=== PATIENT | male | born 1950 | race Caucasian/White ===

== ENCOUNTER → 2016-10-18 | Outpatient (CLI) | payer OTHER | LOC: BHFA 10:30 | PROVIDERS: ATTEND Internal Medicine Cardiovascular Disease | DX: R55 Syncope and collapse (principal) ==

== ENCOUNTER 2016-11-01 17:46 | Observation (INO) | payer OTHER, MEDICARE ==
--- NOTE | 2016-11-01 18:03 | CPEKG ---
Heart Rate: 73 RR Interval: 822 P-R Interval: 160 QRSD Interval: 96 QT Interval: 396 QTC Interval: 437 P Star: 68 QRS Star: 51 T Wave Star: 53 EKG Severity - OTHERWISE NORMAL ECG - EKG Impression: SINUS ARRHYTHMIA, RATE 67-79 EKG Impression: VENTRICULAR PREMATURE COMPLEX Electronically Signed By: Mag Pulido 01-Nov-2016 22:08:12
[2016-11-01] MEDS ORDERED: NS 500 ML IV ONE (18:13)
--- NOTE | 2016-11-01 18:23 | EDPHY ---
H & P Time Seen by Provider: 11/01/16 17:57 HPI/ROS: HPI Fainting, word-finding difficulty. 66-year-old male by private vehicle with his . Patient was seen at the office of his primary care physician, Dr. Hannon. Patient was sent to the emergency department from there by private vehicle. Patient reports Monday he had an episode of expressive aphasia. He describes this as word-finding difficulty and feeling confused which lasted about 30 minutes and then resolved. He reports that he still feels somewhat fuzzy in his head. He reports on Monday he had a syncopal event. He reports Monday was helping somebody move. He reports that he was sitting for a little while then got up to go turn off water outside for the garden. He reports he was leaning against his house and suddenly blacked out. He reports that he has had 6 or 7 of these episodes over the years. He reports that sometimes they have been associated with physical exercise. He reports that he had a stress test as well as a Holter monitor placed in early October by his twisting frame changer Dr. Sohan Gutierrez. Dr. hill discussed his recent history with Dr. Gutierrez. He was sent here for workup and admission under Dr. Gutierrez request. Other than feeling mildly fuzzy in his head. He denies any other symptoms at this time. ROS: Constitutional: No fever, no chills. As above. Eyes: No discharge. No changes in vision. ENT: No sore throat. No nasal congestion or rhinorrhea. Respiratory: No cough. No shortness of breath. Cardiac: No chest pain, no palpitations. Gastrointestinal: No abdominal pain, no vomiting, no diarrhea. Genitourinary: No hematuria. No dysuria or increased frequency with urination. Musculoskeletal: No back pain. No neck pain. No myalgias or arthralgias. Skin: No rashes. Neurological: No headache. No focal weakness or altered sensation. Past medical history: Hypothyroidism. He takes Synthroid for this. As above. Social history: Nonsmoker[place] He is in the wind visits. He drinks alcohol on a daily basis. Physical Exam: General Appearance: Alert, no distress. This patient is responding to questions appropriately and in full sentences. This patient appears well- hydrated and well-nourished. Eyes: Pupils equal and round at 3-2 mm bilaterally, no pallor or injection. No lid edema, erythema or injection. ENT, Mouth: Mucous membranes are moist. The pharyngeal tissues are unremarkable. No edema or swelling. No asymmetry suggestive of abscess. No erythema or exudates. No tongue lacerations or abrasions. Respiratory: There are no retractions, lungs are clear to auscultation with good air movement bilaterally. Cardiovascular: Regular rate and rhythm. No murmur. Gastrointestinal: Abdomen is soft and nontender, no masses, bowel sounds normal. No focal tenderness at McBurney's point. No Reese sign. Neurological: Motor sensory function is grossly intact. Cranial nerves are normal. Gait is normal. Skin: Warm and dry, no rashes. Musculoskeletal: Neck is supple and nontender. Extremities are symmetrical. All joints range without pain or impingement. Psychiatric: No agitation. No depression. Database: EKG: EKG time is 6:01 p.m.; EKG shows a narrow complex normal sinus arrhythmia with a ventricular rate of 73. The CA, QRS, QT intervals are within normal limits. Tall peaked T-waves in V3 and V4. PVC noted. No evidence of right heart strain. Interpreted by me. Imaging: Chest x-ray PA and lateral; atherosclerotic tortuous aorta. No acute cardiopulmonary disease process noted. Interpreted by me. MRI of brain noncontrast diffusion-weighted; no acute pathology. Generalized atrophy which is mild. Small vessel disease noted. Results were discussed with staff radiologist Dr. Huy Guerrero. Procedures: Emergency department course: IV placed. He was placed on a operator assistant i cementing. EKG performed. He will be started on IV normal saline with 500 cc to be done over the next hour. Noncontrast MRI of his brain will be obtained. 7:30 p.m., patient re-evaluated. Resting comfortably at this time. Results of blood work discussed with him. Plan for admission discussed. He endorses. MRI results pending. 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 7:40 p.m., spoke with on-call hospitalist regarding this patient. Dr. Anisa Anderson accepts the patient for admission to telemetry. Cardiology will be consulted by the hospitalist service. Patient's remaining emergency department course under my care uneventful. Patient was admitted in stable condition to the hospitalist service. Differential Diagnosis: The differential diagnosis on this patient includes but is not limited to TIA, syncope secondary to arrhythmia, vasovagal syncope. This represents a partial list of diagnoses considered. These considerations are based on history, physical exam, past history, reassessment and diagnostic testing. Smoking Status: Current every day smoker Constitutional: Initial Vital Signs Temperature (C) 37.0 C 11/01/16 17:52 Heart Rate 69 11/01/16 17:52 Respiratory Rate 16 11/01/16 17:52 Blood Pressure 136/89 H 11/01/16 17:52 O2 Sat (%) 98 11/01/16 17:52 O2 Delivery Mode Room Air Allergies/Adverse Reactions: penicillin G Allergy (Verified 11/01/16 17:49) Home Medications: Medication Instructions Recorded Levothyroxine [Synthroid 125 mcg 125 mcg PO DAILY06 11/01/16 (*)] Multivitamins [Multivitamin (*)] 1 each PO DAILY 11/01/16 Medical Decision Making - Diagnostics Imaging Results: Imaging Impressions Brain MRI 11/01/16 18:13 Impression: 1. Negative for acute cortical ischemia, specifically, no abnormality is seen in the inferior frontal gyrus to explain expressive aphasia. 2. Mild generalized atrophy with multiple foci of white matter T2 hyperintensity presumably small vessel disease. Results called and discussed with Mag Pulido MD on 11/01/2016 at 20: 21 Chest X-Ray 11/01/16 18:13 Impression: 1. Atherosclerotic tortuous aorta. 2. No acute pulmonary disease. - Data Points Laboratory Results: Laboratory Results 11/01/16 18:10 11/01/16 18:10 11/01/16 11/01/16 11/01/16 18:10 18:10 18:10 WBC 6.21 10^3/uL 10^3/uL (3.80-9.50) RBC 5.43 10^6/uL 10^6/uL (4.40-6.38) Hgb 16.7 g/dL g/dL (13.7-17.5) Hct 48.0 % % (40.0-51.0) MCV 88.4 fL fL (81.5-99.8) MCH 30.8 pg pg (27.9-34.1) MCHC 34.8 g/dL g/dL (32.4-36.7) RDW 13.3 % % (11.5-15.2) Plt Count 220 10^3/uL 10^3/uL (150-400) MPV 9.7 fL fL (8.7-11.7) Neut % (Auto) 54.5 % % (39.3-74.2) Lymph % (Auto) 31.2 % % (15.0-45.0) [place] % (Auto) 9.0 % % (4.5-13.0) Eos % (Auto) 3.7 % % (0.6-7.6) Baso % (Auto) 1.4 % % (0.3-1.7) Nucleat RBC Rel Count 0.0 % % (0.0-0.2) Absolute Neuts (auto) 3.38 10^3/uL 10^3/uL (1.70-6.50) Absolute Lymphs (auto) 1.94 10^3/uL 10^3/uL (1.00-3.00) Absolute Monos (auto) 0.56 10^3/uL 10^3/uL (0.30-0.80) Absolute Eos (auto) 0.23 10^3/uL 10^3/uL (0.03-0.40) Absolute Basos (auto) 0.09 10^3/uL 10^3/uL (0.02-0.10) Absolute Nucleated RBC 0.00 10^3/uL 10^3/uL (0-0.01) Immature Gran % 0.2 % % (0.0-1.1) Immature Gran # 0.01 10^3/uL 10^3/uL (0.00-0.10) PT 12.7 SEC SEC (12.0-15.0) INR 0.96 (0.83-1.16) APTT 27.5 SEC SEC (23.0-38.0) Sodium 140 mEq/L mEq/L (134-144) Potassium 4.1 mEq/L mEq/L (3.5-5.2) Chloride 106 mEq/L mEq/L (97-110) Carbon Dioxide 23 mEq/l mEq/l (22-31) Anion Gap 11 mEq/L mEq/L (8-16) BUN 14 mg/dL mg/dL (7-23) Creatinine 0.8 mg/dL mg/dL (0.7-1.3) Estimated GFR > 60 Glucose 86 mg/dL mg/dL (70-100) Calcium 9.6 mg/dL mg/dL (8.5-10.4) Creatine Kinase 134 IU/L IU/L (0-224) CK-MB (CK-2) Fraction 2.86 ng/mL ng/mL (0.00-3.19) Troponin I < 0.012 ng/mL ng/mL (0.000-0.034) NT-Pro-B Natriuret Pep 56 pg/mL pg/mL (0-125) TSH 0.595 uIU/mL uIU/mL (0.465-4.680) Medications Given: Discontinued Medications Sodium Chloride (Ns) 500 mls @ 1,000 mls/hr IV EDNOW ONE PRN Reason: Protocol Stop: 11/01/16 18:42 Last Admin: 11/01/16 18:19 Dose: 500 mls Departure - Departure Disposition: [facility] Acute Clinical Impression: Transient expressive aphasia, Syncope
[2016-11-01 18:28] LABS: % IMMATURE GRANULYOCYTES 0.2 % (0.0-1.1); ABSOLUTE IMMATURE GRANULOCYTES 0.01 10^3/uL (0.00-0.10); ADD DIFF? NO; ADD MORPH? NO; ADD SCAN? NO; ATYPICAL LYMPHOCYTE FLAG 0 (0-99); FRAGMENT RBC FLAG 0 (0-99); HEMOGLOBIN 16.7 g/dL (13.7-17.5); LEFT SHIFT FLG 0 (0-99); LIPEMIA HEMOLYSIS FLAG 90 (0-99); MEAN CELL HEMOGLOBIN 30.8 pg (27.9-34.1); MEAN CELL HEMOGLOBIN CONCENTR. 34.8 g/dL (32.4-36.7); MEAN CELL VOLUME 88.4 fL (81.5-99.8); MEAN PLATELET VOLUME 9.7 fL (8.7-11.7); PLATELET CLUMPS FLAG 10 (0-99); PLATELET COUNT 220 10^3/uL (150-400); RED BLOOD CELL COUNT 5.43 10^6/uL (4.40-6.38); RED CELL DISTRIBUTION WIDTH 13.3 % (11.5-15.2)
[2016-11-01 18:31] LABS: ANION GAP 11 mEq/L (8-16); CALCIUM 9.6 mg/dL (8.5-10.4); CARBON DIOXIDE 23 mEq/l (22-31); CHLORIDE 106 mEq/L (97-110); CREATININE 0.8 mg/dL (0.7-1.3); GLOMERULAR FILTRATION RATE > 60; GLUCOSE 86 mg/dL (70-100); POTASSIUM 4.1 mEq/L (3.5-5.2); SODIUM 140 mEq/L (134-144)
[2016-11-01 18:37] LABS: APTT 27.5 SEC (23.0-38.0); INR 0.96 (0.83-1.16); PROTIME(PATIENT) 12.7 SEC (12.0-15.0)
[2016-11-01 18:40] LABS: CREATINE KINASE-MB FRACTION 2.86 ng/mL (0.00-3.19)
[2016-11-01 18:53] LABS: TROPONIN I < 0.012 ng/mL (0.000-0.034)
[2016-11-01] MEDS ORDERED: ONDANSETRON DISINTEGRATING 4 MG TAB PO PRN (23:19)
[2016-11-01] MEDS ORDERED: ONDANSETRON 4 MG/2 ML VIAL IVP PRN (23:19)
[2016-11-01] MEDS ORDERED: oxyCODONE IR 5 MG TAB PO PRN (23:19)
[2016-11-01] MEDS ORDERED: TEMAZEPAM 15 MG CAP PO PRN (23:19)
[2016-11-01] MEDS ORDERED: ACETAMINOPHEN 325 MG TAB PO PRN (23:19)
--- NOTE | 2016-11-01 23:55 | GHP ---
[f rep st] HISTORY AND PHYSICAL DATE OF ADMISSION: 11/01/2016 CHIEF COMPLAINT: Syncope. HISTORY OF PRESENT ILLNESS: This is a 66-year-old man who presents with syncope. History predates this last episode, however. Over the last 6 years, he has had multiple episodes of lightheadedness with about one episode of syncope a year. He has also had episodes of aphasia about 3-4 per year, w hich lasts about 15-30 minutes. Syncope is described as having a slight prodrome where he gets ligh theaded and then passes out. He has no palpitations or chest pain prior to this. It does not seem as though this is exertional either. Aphasia described as episodes 15-30 minutes of word-finding di fficulties. Not associated with any focal weakness or numbness though he does feel confused. As ab ove, he has had multiple a few of these a year for the past 6 years. He was recently sent to see Dr. Gutierrez for a cardiac workup. He had a Holter monitor, which showed 10 episodes of SVT, as well as PVCs. He had a treadmill EKG, which was nondiagnostic due to EKG derek ngdavid. Outpatient nuclear stress test has been ordered. He saw Dr. Hannon today who has been coor dinating all this. Because of the syncope that occurred last Monday, Dr. Hannon sent him to the E [facility]. PAST MEDICAL/SURGICAL HISTORY: 1. Hypothyroid. 2. Appendectomy. MEDICATIONS: Please see medication reconciliation. ALLERGIES: Penicillin G. SOCIAL HISTORY: He drinks daily. 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 He does not smoke or use any ot her drugs. FAMILY HISTORY: His father had an ND. REVIEW OF SYSTEMS: A 10-point review of systems is conducted and is negative except per HPI. PHYSICAL EXAM: VITAL SIGNS: Blood pressure 146/88, heart rate 54, respiration rate 20, saturating 94% on room air, temperature is 36.6. GENERAL: The patient is a pleasant man who appears comfortab le in no acute distress. HEENT: Shows him to be normocephalic atraumatic. CARDIOVASCULAR: Regula r rate and rhythm. No murmurs, rubs, or gallops. PULMONARY: Lungs clear to auscultation bilateral ly. ABDOMEN: Soft, nontender, nondistended. SKIN: No rash. : No Saul. NEUROLOGIC: Shows h im to be alert and oriented x3. He is moving all extremities. PSYCHIATRIC: Shows normal mood and affect. LABORATORY DATA: CBC is normal. INR is normal. Basic metabolic panel, troponin, TSH are all cory l. DATA: 1. Discussed this with Dr. Anderson. Will admit to PCU. 2. Chest x-ray, which I personally viewed and interpreted, shows nothing acute. 3. Brain MRI shows no CVA, but it does show mild general atrophy. 4. ECG, which I personally viewed and interpreted, shows 1 PVC, nothing acute. IMPRESSION AND PLAN: 1. Syncope: He does have runs of supraventricular tachycardia, which correlate with his lightheade dness on recent Holter. He had a non-diagnostic EKG treadmill. Will order a treadmill with nuclear imaging. I will ask my covering colleague to consult Cardiology tomorrow for additional recommenda tions. 2. Episodes of aphasia: No cerebrovascular accident on his MRI. He tells me he has had a negative duplex ultrasound of his carotids recently. We will get an echo as above. I will go ahead and ord er a CT angiogram of his head and neck. Will order lipids. Will start an aspirin. Will screen him for diabetes. Will consult Neurology. 3. Supraventricular tachycardia: Cardiology has been consulted as above. Reasonable to consider a beta-nelson. 4. Hypothyroid: Will continue his levothyroxine. /[id number]/MODL
[2016-11-02] MEDS ORDERED: LEVOTHYROXINE 125 MCG TAB PO SCH (06:00)
[2016-11-02 06:02] LABS: CHOLESTEROL 146 mg/dL (140-220); CHOLESTEROL/HDL RATIO 4.87 RATIO (1.00-4.97); HIGH DENSITY LIPOPROTEIN 30 mg/dL (40-65); LDL/HDL RATIO 2.87 RATIO (1.00-3.64); LOW DENSITY LIPOPROTEIN 86 mg/dL (80-100); NON-HIGH DENSITY LIPOPROTEIN 116 mg/dL (90-129); TRIGLYCERIDE 151 mg/dL (40-150); VERY LOW DENSITY LIPOPROTEINS 30 mg/dL (8-25)
[2016-11-02 06:13] LABS: TROPONIN I < 0.012 ng/mL (0.000-0.034)
[2016-11-02] MEDS ORDERED: ASPIRIN 81 MG CHEWABLE TAB PO SCH (09:00)
[2016-11-02] MEDS ORDERED: MULTIVITAMINS 1 EACH TAB PO SCH (09:00)
[2016-11-02 09:42] LABS: HEMOGLOBIN A1C 5.3 % (4.0-6.0)
[2016-11-02] MEDS ORDERED: IOPAMIDOL (ISOVUE 370) 100 ML BTL IV ONE (11:36)
--- NOTE | 2016-11-02 12:32 | CPR ---
[f rep st] NONINVASIVE CARDIAC PROCEDURE REPORT INDICATION FOR PROCEDURE: Recent syncopal event, known history of abnormal exercise treadmill testi mary October 18. PRE: After obtaining informed consent, patient was placed on electrocardiogram. Initial EKG shows sinus rhythm, normal axis, no significant ST or T-wave abnormalities suggesting of ischemia. The osmin mcduffie's initial blood pressure 134/90, denying of any chest pain, shortness of breath, or symptoms s uggesting of ischemia. Initial saturation 94%. STRESS: Patient was placed on exercise treadmill, following standard Jian protocol with the follow ing findings. 1. Patient was able to exercise for 8 minutes. 2. 9.3 METS. 3. Obtaining a heart rate of 147 beats per minute, which 94% of MPHR. 4. Patient had [address] depression in inferolateral leads. 5. Patient had no chest pain or symptoms suggesting of ischemia. 6. Patient was noted to have rare premature ventricular contractions. 7. BP variations: Rest 134/90, peak 170/80. 8. SpO2 remained greater than 90% throughout testing. 9. Testing was stopped due to maximum effort. 10. The patient has a Torrez treadmill score of 3, placing him at intermediate risk. RECOVERY: Patient recovered for 5 minutes. Vital signs remained stable. EKG returned to baseline. No significant arrhythmias noted. Patient remained asymptomatic. Patient's vital signs stable wh en taken down to Nuclear Medicine for post-stress imaging. IMPRESSION: Patient, 66-year-old male, undergoing exercise MPI study with previous history of recen t abnormal exercise treadmill testing and syncopal events. Test is equivocal for cardiac ischemia. MPI study imaging is pending. Patient with no symptoms of chest pain or angina. Further evaluation post MPI study. /[id number]/MODL
--- NOTE | 2016-11-02 12:50 | PDCONSULT ---
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 Syncope is currently being worked up by cardiology and [facility] internal medicine. He had also mentioned to the ED provided that he has been having episodes of expressive aphasia over the years. This prompted neurology consultation. Patient reports maybe 6-7 stereotyped episodes of aphasia over the last several years. He will abruptly feel like he can think of what he wants to say, but can 't get the words out. He will produce broken up speech for about 15-30 mins. He can't think of any provoking factor. He will sometimes get a headache with these events, but not always. He's never had any focal weakness, sensory loss, visual disturbance, gait trouble, dizziness with these episodes. He has no known conventional vascular risk factors, but he is taking aspirin 162mg daily. ROS: As per the HPI, otherwise a complete 12 point ROS was performed and is negative ALLERGIES AND MEDS: As recorded in the EMR - reviewed and reconciled PFSH: As per the intake H&P by Dr. Peterson from yesterday EXAM: VS reviewed in EMR GEN: WDWN laying in NAD HEENT: NCAT, sclera anicteric, conjunctiva not injected, MMM, oropharynx clear, no scalp tenderness NECK: supple, nontender, no meningismus CV: RRR s1 s2 wo m/r/c/g. Carotid pulses 2+ wo bruit NEURO: MS: awake, alert, oriented to all spheres. Speech nondysarthric. No language disturbance. Follows commands. Attends to both sides. Recent/remote memory grossly intact. Mood euthymic. Good fund of knowledge. CN: pupils 4mm round and reactive. Fundi with sharp discs. VFF. Primary gaze centered. Full ocular motility. Facial sensation preserved. Face symmetric. Hearing grossly intact to finger rub. Palatoglossal movements intact. Shoulder shrug and head turn strong. MOTOR: normal bulk/tone. No adventitial movements. Full power throughout. SENSORY: intact to all modalities throughout. No extinction. COORD: no ataxia FN/HS. Compa preserved. REFLEX: plantars down. No clonus. Absent ankle jerks, other DTRS 1/4. GAIT: deferred to PT safety eval DATA REVIEW: Labs reviewed in EMR PERSONALLY INTERPRETED RESULTS AND DATA: MRI brain wo - nothing acute, mild scattered punctate subcortical T2 FLAIR hyperintensities likely reflective of chronic microvascular ischemic changes CTA head/neck - patent vessels IMPRESSION AND RECOMMENDATIONS: // EPISODIC APHASIA // HX MIGRAINE Patient with recurrent stereotyped episodes of expressive aphasia which can occur with a headache. Differential includes TIA or migrainous accompaniments. For now, would advise increasing ASA to 325mg - this can provide benefit in TIA/ stroke prevention as well as migraine aura prevention. Continue with goal normotension. LDL is 86, which is at goal < 100 for possible TIA. Normoglycemia with A1c < 6.5. Stroke education. Further syncopal workup ongoing with other services. Can followup in clinic in 3 months. If spells recur, can consider a trial of migraine preventives. No further recommendations. Will sign off.
--- NOTE | 2016-11-02 14:47 | GCON ---
[f rep st] CONSULTATION INDICATION FOR CARDIOLOGY CONSULTATION: History of syncopal event, recent abnormal exercise treadmill testing. HISTORY OF PRESENT ILLNESS: The patient a 66-year-old male who reports long history of episodes of lightheadedness, and syncopal events. He reports he has had 6 events over the last 4 years, reporting most recent one was last Monday. On his last event, he reports he was resting in his chair and he was watering his yard. At the same time, he got up, walked out to the side of his house, and was getting ready to bend over to turn off the water when he became lightheaded, denying having any dizziness or palpitations, and reported falling against the house, reporting total loss of consciousness for less than a second. Denies of any associated chest pressure or pain, dizziness, prior nausea, diaphoresis; reporting no bowel or bladder incontinence, denies any biting of the tongue. He reports he soon came to, and then did not have any further symptoms, feeling back to normal within 15-20 minutes. He says this has happened to him in the past, but he did not seek medical attention. He does report he has also been having episodes of expressive aphasia for the last 3-4 years, and reporting worsening last Monday that lasted for multiple hours. He tells me that he has, in the past, had a carotid ultrasound that was indeterminate for any stenosis. Patient also, due to history of syncopal events , has been having a workup done by his PCP. He was sent over to [facility] on October 18 and underwent exercise treadmill testing. He was able to go 8 minutes 15 seconds, noted to have upsloping ST shift of 1.5 mm in II, III, aVF, V4, V5, and V6. No chest pain or symptoms during stress testing, but gave him a Torrez treadmill score of 1. With concern for possible cardiac ischemia, he was supposed to undergo nuclear stress testing next week. He has also had a Holter monitoring done on October 18, which showed his average heart rate was 82 beats per minute, minimum heart rate was 47 BPM, maximum heart rate was 130 BPM. He was noted on this 48-hour monitoring to have greater than 2000 premature atrial contractions, 4 runs of supraventricular tachycardia (the longest was 10 beats at a rate of 179 beats per minute), and 283 premature ventricular contractions. The patient did see his PCP yesterday, and due to his ongoing symptoms and new aphasia, he was sent to [facility] for further evaluation. Upon arrival to the emergency department, an electrocardiogram was done which showed sinus rhythm, with occasional premature ventricular contraction; no acute ST or T-wave abnormalities. A brain MRI was done that was negative for acute cortical ischemia and specifically no abnormality seen in the inferior frontal gyrus to explain expressive aphasia. Mild general generalized atrophy with multiple foci of white matter T2 hyperintensity, presumable small-vessel disease. Symptoms: At this current time of my assessment, he reports no further symptoms. Denies any lightheadedness, chest pain, palpitations, orthopnea, PND , or edema. Denies any recent symptoms since his Monday event of an expressive aphasia. Denies any recent fevers, chills, or night sweats. Reports , besides recent expressive aphasia and syncopal event, he has had no further symptoms, and he has been in his normal state of health. This patient has significant cardiac risk factors that include age, sex, previous smoker, and family history of coronary artery disease. PAST MEDICAL HISTORY: Includes hypothyroidism, syncopal events, as mentioned above, and expressive aphasia. PAST SURGICAL HISTORY: Includes appendectomy. FAMILY HISTORY: Patient reports father of an IN at 81 and mother's father of heart disease in his 80s. SOCIAL HISTORY: Patient currently works for a [employer]. He is . He has no children. He reports he is a previous smoker, both in high school and in college, but has not smoked for at least 30 years. He drinks between 1 and 3 cups of wine on a daily basis. He denies any illicit drug use. ALLERGIES: Penicillin G. HOME MEDICATIONS: Include multivitamins 1 tablet daily and Synthroid 125 mcg p.o. daily. REVIEW OF SYSTEMS: A 10-point review of systems done on patient, all negative except as mentioned above. PHYSICAL EXAMINATION: GENERAL APPEARANCE: Medium built, well-groomed male. He is alert and oriented to person, place, time, and situation and appears to be under no acute distress. VITAL SIGNS: Blood pressure of 139/ 78, heart rate 60, respirations 16, saturating 94% on room air, and temperature 36.7 degrees Celsius. HEENT: Head is normocephalic. Lips and tongue are pink and moist with no signs of cyanosis. Conjunctivae pink. NECK: Trachea is midline, +2 carotid pulses bilateral. No auscultated bruits. No jugular vein distention. RESPIRATORY: Lungs clear to auscultation. No rhonchi, rales, or wheezes. No accessory muscle use. No intercostal muscle retraction noted. CARDIAC: Regular rate and regular rhythm, S1 and S2, no S3, S4 gallops, rubs, or murmur noted. ABDOMEN: Soft, nontender. Bowel sounds x4 quadrants. No organomegaly. No palpable masses. SKIN: [place], warm, and dry. No cyanosis, no clubbing, no peripheral edema. VASCULAR: +2 carotid pulses bilateral. +2 radial pulses bilateral, +2 posterior tibial pulses bilateral. LABORATORY STUDIES: Studies on admission showed WBC of 6.21, hemoglobin of 16.7 , hematocrit 48.0, platelet count of 220. INR was noted to be 0.96. Sodium 140 , potassium 4.1, chloride 106, CO2 20, BUN 14, creatinine 0.8, glucose 86. Initial troponin 0.01, ProBNP of 56 today; second troponin has been less than 0.012. Triglycerides were noted to be 151, total cholesterol 146, LDL 86, HDL 30. Patient had a TSH drawn on admission, which was 0.595. Currently a D- dimer is pending. PROCEDURES: Electrocardiogram as mentioned above. MRI of brain as mentioned above. Chest x-ray showing arthrosclerotic torturous aorta; no acute pulmonary disease. Head CTA showing normal intracranial arterial circulation; no evidence of embolic disease or aneurysm. Patent venous system. CTA of the neck , showing widely patent carotid and vertebral arteries, and minimal right carotid plaque resulting in less than 10% narrowing. The patient has undergone exercise treadmill MPI study. MPI study results are still pending. On exercise treadmill, he was noted to have [address] depression in inferolateral leads; he was asymptomatic. He had a Torrez treadmill score of 3, placing him at intermediate risk; it was an equivocal stress test. ASSESSMENT AND PLAN: 1. Syncopal events: Patient reports history of multiple syncopal events, last episode last Monday, reporting minimal loss of consciousness. Denies any palpitations. Denies any associated symptoms of chest pain or pressure. Denies any nausea or diaphoresis. The patient has had a recent Holter monitoring, showing brief episodes of supraventricular tachycardia for 10 beats , up to 179 BPM, but no other malignant arrhythmias or pauses noted. Also noted to have occasional premature atrial contraction. On continuous cardiac monitoring, he has been sinus rhythm with occasional premature ventricular contraction since hospitalization. MPI exercise treadmill was equivocal with [address] depression in inferolateral leads; MPI imaging is still pending. Head and brain MRI, head CTA, and CT neck show no significant stenosis. At this time, echocardiogram is pending. Pending the results of MPI , if it does show cardiac ischemia, would consider patient undergoing coronary angiogram for further evaluation as a possible cause. If not, consideration of placing patient on a long-term monitor. I would also like him to have orthostatic blood pressures done; I have asked the nursing staff to do those today. Will start on aspirin therapy. 2. Expressive aphasia: Negative MRI, CTA of the head, and CTA of the neck for any significant findings. Echocardiogram is pending. Would like him to have a bubble study done with echo, to evaluate for possible PFO/ASD. Would consider consulting Neurology. 3. Noted episodes of supraventricular tachycardia: Patient was noted to have small runs of supraventricular tachycardia on monitoring, but has not had any since hospitalization. Patient denies of any palpitations during syncopal events. Again, consideration for placing patient on a 30-day monitor to evaluate further for any significant runs of SVT (most recent Holter monitor showed the longest was 10 beats). 4. Arthrosclerotic plaque in aorta: Chest x-ray did note atherosclerotic torturous aorta, and patient was noted to have a mild (10%) narrowing in his carotid arteries. He had been started on aspirin therapy. He has had a fasting lipid panel done showing mild elevation of triglycerides, normal total cholesterol, and LDL of 86. With this disease, would consider starting him on statin therapy. 5. Hypothyroidism: Patient has been restarted on home Synthroid level. Thank you for this consultation. Further recommendations will come as testing completed. /[id number]/MODL MTDD
[2016-11-02 15:12] VITALS: BP 142/82; PULSE 73; RESP 12; TEMP 97.6; O2SAT 96
--- NOTE | 2016-11-02 15:37 | ECHO ---
[id number] + + [address] : : [place] [address] : : [phone] + + Adult Echocardiographic Report + -----+ :Name: TAN ESCOBAR MStudy Date: 11/02/2016 01:22 PM : : Hospital Admission Number: [id number] Location : 218: :: 1950 Gender: Male Height: 70 in : :Age: 66 yrs Race: WH Weight: 170 lb : :Reason For Study: Eval LV Fx : : BSA: 1.9 meters2 : :History: Syncope : + -----+ MMode/2D Measurements \T\ Calculations IVSd: 0.85 cm LVIDd: 4.8 cm FS: 38.0 % Ao root diam: 3.5 cm LVPWd: 0.99 cm LVIDs: 3.0 cm EDV(Teich): 107.3 ml ACS: 1.7 cm ESV(Teich): 34.2 ml EF(Teich): 68.1 % Normal Measurement Values: + + :LVIDd (3.5-5.7cm) IVSd (0.6-1.1cm) LVPWd (0.6-1.1cm) Aortic Root (2.0-3.7cm)Left Atrium (1.5-4.0cm): :LV Vol(d) (76-115ml) LV Vol(s) (29-48ml) Ejec Fraction (50-65%)PV Sergey (0.6- 1.2m/s) TV Sergey (0.4-1.0m/s) : :MV E Sergey (0.8-1.0m/s)MV A Sergey (0.3-1.0m/s)LVOT Sergey (0.7-1.2m/s) Asc Ao Sergey ( 0.9-1.8m/s) : + + Doppler Measurements \T\ Calculations MV E max sergey: Ao V2 max: LV V1 max: PA V2 max: 48.4 cm/sec 127.6 cm/sec 87.9 cm/sec 50.2 cm/sec MV A max sergey: Ao max P.5 mmHg LV V1 max PG: PA max P.3 cm/sec 3.1 mmHg 1.0 mmHg MV E/A: 0.91 Left Ventricle The left ventricle is normal in size. There is normal left ventricular wall thickness. The left ventricular ejection fraction is normal. There is Doppler evidence for diastolic dysfunction. Ejection Fraction = 68%. The left ventricular wall motion is normal. Lung interference on Sax view. Right Ventricle The right ventricle is normal in size and function. Atria The left atrial size is normal. Right atrial size is normal. Mitral Valve The mitral valve is normal in structure and function. There is no evidence of mitral valve prolapse. There is no mitral valve stenosis. There is no mitral regurgitation noted. Tricuspid Valve Normal tricuspid valve. There is trace tricuspid regurgitation. Right ventricular systolic pressure is normal. Aortic Valve Mild Aortic Valve Calcification. There is no aortic stenosis. There is no aortic insufficiency. Pulmonic Valve The pulmonic valve is normal in structure and function. There is no pulmonic valvular regurgitation. Great Vessels The aortic root is normal size. Pericardium/Pleural There is no pericardial effusion. Conclusion A complete two-dimensional transthoracic echocardiogram was performed (2D, M-mode, Doppler and color flow Doppler). There is normal left ventricular wall thickness. The left ventricular ejection fraction is normal. There is Doppler evidence for diastolic dysfunction. Ejection Fraction = 68%. The left ventricular wall motion is normal. Lung interference on Sax view The right ventricle is normal in size and function. The left atrial size is normal. The mitral valve is normal in structure and function. There is trace tricuspid regurgitation. Right ventricular systolic pressure is normal. Mild Aortic Valve Calcification There is no pericardial effusion. Final Reading Physician: Yahir Capone signed on 11/02/2016 03:36 PM Ordering Physician: Nish Peterson Performed By: Nelson Castillo, ADIACS
--- NOTE | 2016-11-02 17:03 | ECHO ---
[id number] + + [address] : : [place] [address] : : [phone] + + Adult Echocardiographic Report + -----+ :Name: TAN ESCOBAR MStudy Date: 11/02/2016 04:07 PM : : Hospital Admission Number: [id number] Location : 218: :: 1950 Gender: Male : :Age: 66 yrs Race: WH : :Reason For Study: Eval for PFO/VSD : :History: Expressive aphasia : + -----+ Atria Injection of contrast documented no interatrial shunt. The interatrial septum is intact with no evidence for an atrial septal defect. Conclusion This is a limited echo with a bubble study to evaluate for a PFO. Injection of contrast documented no interatrial shunt. The interatrial septum is intact with no evidence for an atrial septal defect. Final Reading Physician: Yahir Capone signed on 11/02/2016 05:02 PM Ordering Physician: Checo Lane Performed By: Nelson Castillo, ADIACS
--- NOTE | 2016-11-02 17:47 | PDDCSUM ---
Discharge Summary Discharge Summary: DISCHARGE SUMMARY FOLLOW-UP ITEMS: Outpatient 30 day monitor, repeat outpatient lipid panel DATE OF ADMISSION: 11/01/2016 DATE OF DISCHARGE: 11/02/2016 DISCHARGE DIAGNOSES: 1. Acute syncope 2. Acute expressive aphasia 3. Supraventricular tachycardia CONSULTATIONS: Cardiology, Neurology PROCEDURES / IMAGING: Nuclear medicine stress test demonstrating no ischemic abnormalities, echocardiogram with bubble study demonstrating no PFO, no ASD, no VSD, normal ejection fraction and valves, CT angiogram of head and neck demonstrating small non flow limiting stenosis, brain MRI demonstrating no CVA CHIEF COMPLAINT: Syncope, intermittent expressive aphasia SUBJECTIVE: Patient is feeling well at time of discharge, he has had no recurrence of events during his hospitalization PHYSICAL EXAM ON DISCHARGE: Systolic blood pressure is 121-140, heart rate 50-60, afebrile overnight, satting well on room air, motor strength 5/5 bilateral upper and lower extremities, sensation intact bilaterally, patient has facial symmetry, heart rhythm is regular, lungs are clear to auscultation bilaterally LABS ON DISCHARGE: LDL 86, hemoglobin A1c pending, troponin negative x2 HOSPITAL COURSE BY PROBLEM: 1. Acute syncope. Unclear etiology, ruled out for pulmonary embolism with a negative D-dimer, ruled out for valvular abnormality with normal echocardiogram , ruled out for obstructive cerebral vascular disease with normal CT angiogram, ruled out for myocardial ischemia with normal stress test. Possible etiologies to include supraventricular tachycardia versus TIA. Patient will have an outpatient 30 day monitor placed and he will also be empirically treated for possible TIA. The patient was seen in consultation by Neurology for his expressive aphasia, they recommended upgrading his aspirin 81 mg aspirin 325 mg. His LDL is currently at goal for possible TIA, but is not at goal for cerebral vascular disease, and I counseled the patient regarding diet and exercise, and he would like to avoid starting a statin. He would like to have a repeat lipid panel as outpatient follow-up cardiology appointment. The patient should also follow up with Neurology if he continues to experience expressive aphasia. DISCHARGE MEDICATIONS: Please see official discharge medication reconciliation sheet in chart , continue home medications with the increase in aspirin 325 mg daily. DISCHARGE INSTRUCTIONS: Please follow up with Cardiology and have 30 day event monitor placed
== END 2016-11-02 18:16 | disposition home or self-care (01) ==
LOC: INTOOBSV 19:43 → F2W 21:56
PROVIDERS: ADMIT Internal Medicine; ATTEND Internal Medicine
PROC: B245ZZZ Ultrasonography of Left Heart (ICD-10-PCS; principal; 2016-11-02)
DX: R55 Syncope and collapse (principal); R47.01 Aphasia; I47.1 Supraventricular tachycardia; E03.9 Hypothyroidism, unspecified; I70.0 Atherosclerosis of aorta; G43.909 Migraine, unspecified, not intractable, without status migrainosus; Z87.891 Personal history of nicotine dependence; Z82.49 Family history of ischemic heart disease and other diseases of the circulatory system; Z88.0 Allergy status to penicillin
CPT/HCPCS: 70496; 70498; 70551; 71010; 78452; 92523; 93005; 93017; 93306; 93308; A9500; G0378; G9162; G9163; G9164; Q9967

== ENCOUNTER → 2017-10-30 | Outpatient (CLI) | payer OTHER, MEDICARE ==
--- NOTE | 2017-10-30 15:18 | CPEEG ---
[f rep st] ELECTROENCEPHALOGRAM 4-HOUR EEG. DATE OF STUDY: 10/30/2017 DATE OF INTERPRETATION: 10/30/2017. INTERPRETATION: This 4-hour video EEG recording is normal. There were no potentially epileptogenic abnormalities present in the awake or sleep recordings. During the video EEG monitoring session, the patient did not have any clinical events. REPORT: This 4-hour video EEG contains 10 Hz alpha activity in the posterior head regions. There wa s no abnormal activation at rest, during photic stimulation or hyperventilation. The patient became drowsy and fell into sustained sleep during the study. There was no abnormal activation during drows iness, sleep, or during times of arousal. The patient did not have any clinical events during the vi chasity EEG monitoring session. /[id number]/MODL
== END ==
LOC: FCPNEURO 07:49
PROVIDERS: ATTEND Physician Assistant Medical
DX: G43.109 Migraine with aura, not intractable, without status migrainosus (principal); R55 Syncope and collapse

== ENCOUNTER → 2018-06-26 | Outpatient (CLI) | payer OTHER | LOC: FIMAGING 17:31 → EDSTATUS 17:33 | PROVIDERS: ATTEND Registered Nurse | DX: M16.11 Unilateral primary osteoarthritis, right hip (principal) ==